=== PATIENT | female | born 1950 | race Hispanic/Latino ===

== ENCOUNTER 2016-12-04 07:50 | Outpatient (CLI) | payer MEDICARE, OTHER ==
--- NOTE | 2016-12-04 09:09 | Mammography Report ---
BILATERAL MAMMOGRAM with CAD: HISTORY: Cancer screening. Comparison study is dated November 29, 2015. FINDINGS: There are scattered fibroglandular densities (approximately 25%-50% glandular). No mass, distortion, suspicious calcification, or skin change is seen. IMPRESSION: Negative mammogram. There is no mammographic evidence of malignancy. RECOMMENDATION: Follow-up per ACS guidelines. BI-RADS CATEGORY: 1 = Negative ACR BI-RADS MAMMOGRAPHIC CODES: 0 = Needs additional imaging evaluation; 1 = Negative; 2 = Benign; 3 = Probably benign; 4 = Suspicious; 5 = Malignant; 6 = Known biopsy-proven malignancy COMMENT: 1. Dense breast tissue, i.e., adenosis, fibrocystic changes, etc., may obscure an underlying neoplasm. 2. Approximately 10% of cancers are not detected with mammography. 3. A negative mammography report should not delay biopsy if a clinically suspicious mass is present. COMMENT: Patient follow-up letters are generated in [employer].
== END 2016-12-04 07:51 | disposition home or self-care (01) ==
LOC: MAMMO 07:50
PROVIDERS: ATTEND Internal Medicine
DX: Z12.31 Encounter for screening mammogram for malignant neoplasm of breast (principal)
CPT/HCPCS: 77067; G0202

== ENCOUNTER 2020-09-24 09:07 | Outpatient (CLI) | payer MEDICARE ==
--- NOTE | 2020-09-25 08:47 | Mammography Report ---
DIGITAL SCREENING MAMMOGRAM, 09/24/2020 CLINICAL INFORMATION / INDICATION: Routine screening mammography. SCREENING MAMMO TECHNIQUE: Digital bilateral 2D mammography was obtained in the craniocaudal and mediolateral obliqu e projections. COMPARISON: Prior mammogram 07/06/2018 FINDINGS: Statements: Patient had recent right shoulder replacement making positioning of the right MLO difficu lt. Best possible images were obtained. Breast Density: The breasts are heterogeneously dense, which may obscure small masses. No dominant mass, suspicious calcifications, or architectural distortion in either breast. There has been no significant change compared with the prior examination. IMPRESSION: No mammographic evidence of malignancy. Follow up recommendation: Routine yearly BI-RADS Category 1: Negative. A "normal" or negative report should not discourage follow up or biopsy of a clinically significant f inding. A written summary of these findings will be mailed to the patient. The patient will be entered into a mammography reporting system which will generate a reminder letter for the patient's next appointmen t at the appropriate interval. The [employer] recommends yearly mammograms starting at age 40 and continuing as l darian as a woman is in good health. Breast MRI is recommended for women with an approximate 20-25% or greater lifetime risk of breast cancer, including women with a strong family history of breast or ova john cancer or who have been treated for Hodgkin's disease. Signer Name: Haleigh Fam MD Signed: 09/25/2020 8:42 AM Workstation Name: [employer]
== END 2020-09-24 09:08 | disposition home or self-care (01) ==
LOC: MAMMO 09:07
PROVIDERS: ATTEND Internal Medicine
DX: Z12.31 Encounter for screening mammogram for malignant neoplasm of breast (principal)
CPT/HCPCS: 77067

== ENCOUNTER 2021-12-13 02:23 | Emergency (ER) | payer MEDICARE ==
[2021-12-13 09:00] LABS: Hematocrit 30.9 % (30.3-42.9); Hemoglobin 10.3 gm/dl (10.1-14.3); Mean Corpuscular HGB Conc 33 % (30-34); Red Blood Count 2.69 M/mm3 (3.65-5.03); Red Cell Distribution Width 15.1 % (13.2-15.2)
[2021-12-13 09:14] LABS: Mean Corpuscular Volume 115 fl (79-97); Platelet Count 85 K/mm3 (140-440)
[2021-12-13 09:26] LABS: Alanine Aminotransferase 25 units/L (7-56); BUN/Creatinine Ratio 18; Blood Urea Nitrogen 7 mg/dL (7-17); Calcium 8.6 mg/dL (8.4-10.2); Hemolysis Index 0
[2021-12-13 09:39] LABS: Bacteria,Urine 1+ /HPF (Negative); Bilirubin,Urine MOD (Negative); Blood,Urine NEG (Negative); Color,Urine Amber (Yellow); Hyaline Casts,Urine 1 /LPF; Renal Epithelial Cells,Urine <1 /LPF
[2021-12-13 09:48] LABS: Ictotest,Urine Positive (Negative)
[2021-12-13] MEDS ORDERED: CYCLOBENZAPRINE 10 MG TAB PO ONE (09:56)
[2021-12-13] MEDS ORDERED: traMADol 50 MG TAB PO ONE (09:56)
[2021-12-13 10:35] LABS: Hepatitis B Surface Antigen Non-Reactive (Negative); Hepatitis C Virus Antibody Non-Reactive (NonReactive)
--- NOTE | 2021-12-13 13:08 | Emergency Department Report ---
ED Abdominal Pain HPI - General Chief Complaint: Abdominal Pain Stated Complaint: RT FLANK PAIN Time Seen by Provider: 12/13/21 09:29 Source: patient, EMS Mode of arrival: Stretcher Limitations: No Limitations - History of Present Illness Initial Comments: 71 yo white female with a pmh of HTN presents to ed for evaluation of pain to right flank and right lower back. She states that pain fells like an intermittent cramp that is severe when is happens, lasts just a few minutes then resolves. She states that pain occurs every few minutes. She denies abdominal pain, n/v, dysuria, and fever. She states that her a few months ago, and she has not been able to follow up with her pcp in several months. MD Complaint: flank pain -: Gradual, days(s) (6-7) Location: R flank Radiation: back (right lower only) Migration to: no migration Severity: severe Severity scale (0 -10): 10 Quality: cramping Consistency: intermittent Associated Symptoms: denies: nausea, vomiting, diarrhea, fever, chills, dysuria, hematemesis, hematochezia, melena, hematuria, anorexia, syncope - Related Data Previous Rx's Medication Instructions Recorded Last Taken Type Cyclobenzaprine HCl [Flexeril 5 MG 5 mg PO TID PRN #30 tab 12/13/21 Unknown Rx TAB] Naproxen [Naprosyn] 500 mg PO BID #14 tab 12/13/21 Unknown Rx cephALEXin [Keflex] 500 mg PO BID #14 cap 12/13/21 Unknown Rx Allergies Allergy/AdvReac Type Severity Reaction Status Date / Time Sulfa (Sulfonamide AdvReac Rash Verified 12/13/21 11:28 Antibiotics) ED Review of Systems ROS: Stated complaint: RT FLANK PAIN Other details as noted in HPI Comment: All other systems reviewed and negative Constitutional: denies: chills, fever Eyes: denies: vision change ENT: denies: congestion Respiratory: denies: shortness of breath Cardiovascular: denies: chest pain, palpitations, dyspnea on exertion, orthopnea, edema, syncope, paroxysmal nocturnal dyspnea Gastrointestinal: denies: abdominal pain, nausea, vomiting, diarrhea, hematemesis, melena, hematochezia Genitourinary: denies: urgency, dysuria, frequency, hematuria Musculoskeletal: back pain Skin: denies: rash Neurological: denies: headache, weakness, numbness ED Past Medical Hx - Social History Smoking Status: Never Smoker Substance Use Type: None - Medications Home Medications: Home Medications Medication Instructions Recorded Confirmed Last Taken Type Cyclobenzaprine HCl [Flexeril 5 MG 5 mg PO TID PRN #30 tab 12/13/21 Unknown Rx TAB] Naproxen [Naprosyn] 500 mg PO BID #14 tab 12/13/21 Unknown Rx cephALEXin [Keflex] 500 mg PO BID #14 cap 12/13/21 Unknown Rx ED Physical Exam - General Limitations: No Limitations General appearance: alert, in no apparent distress - Head Head exam: Present: atraumatic, normocephalic - Eye Eye exam: Present: PERRL, scleral icterus. Absent: periorbital swelling, periorbital tenderness - Neck Neck exam: Present: normal inspection, full ROM. Absent: tenderness, lymphaden opathy - Respiratory Respiratory exam: Present: normal lung sounds bilaterally. Absent: respiratory distress, wheezes, rales, rhonchi, stridor, chest wall tenderness - Cardiovascular Cardiovascular Exam: Present: regular rate, normal heart sounds - GI/Abdominal GI/Abdominal exam: Present: soft, normal bowel sounds. Absent: distended, tenderness, guarding, rebound, rigid - Extremities Exam Extremities exam: Present: normal inspection, normal capillary refill. Absent: tenderness, pedal edema, joint swelling, calf tenderness - Back Exam Back exam: Present: normal inspection, tenderness (right lower only). Absent: CVA tenderness (R), CVA tenderness (L), vertebral tenderness - Neurological Exam Neurological exam: Present: alert, oriented X3, normal gait - Psychiatric Psychiatric exam: Present: normal affect, normal mood - Skin Skin exam: Present: warm, dry, intact. Absent: normal color (jaundice) ED Course Vital Signs 12/13/21 12/13/21 12/13/21 02:24 11:33 13:50 Temperature 98 F 97.6 F 98.5 F Pulse Rate 93 H 69 77 Respiratory 18 20 20 Rate Blood Pressure 142/86 119/78 119/87 [Left] O2 Sat by Pulse 97 100 97 Oximetry - Reevaluation(s) Reevaluation #1: 12/13/21 13:04 Patient states that pain has mostly resolved and refuses CAT scan and states that she will not have any other testing at this time. Explained to patient importance no further imaging to determine cause of LFTs, but she refused. Patient will be discharged home with antibiotics to treat UTI and advised to follow-up with her primary care provider or GI. 12/14/21 22:03 ED Medical Decision Making - Lab Data Result diagrams: 12/13/21 08:37 12/13/21 08:37 - Medical Decision Making 71 yo white female with a pmh of HTN presents to ed for evaluation of pain to right flank and right lower back. She states that pain fells like an intermittent cramp that is severe when is happens, lasts just a few minutes then resolves. She states that pain occurs every few minutes. She denies abdominal pain, n/v, dysuria, and fever. She states that her a few months ago, and she has not been able to follow up with her pcp in several months. Patient refuses further testing, so she will be discharged with rx for Keflex to treat UTI and advised to follow up with GI for further evaluation and management of elevated LFT's. She was encouraged to get imaging but refused despite having the importance of it reviewed. She states that she will get a pcp and follow up later. Critical care attestation.: If time is entered above; I have spent that time in minutes in the direct care of this critically ill patient, excluding procedure time. ED Disposition Clinical Impression: Right flank pain, Elevated LFTs UTI (urinary tract infection) Qualifiers: Urinary tract infection type: acute cystitis Hematuria presence: without hematuria Qualified Code(s): N30.00 - Acute cystitis without hematuria Disposition: HOME / SELF CARE / HOMELESS Is pt being admited?: No Does the pt Need Aspirin: No Condition: Stable Instructions: Antibiotic Medicine, Adult, [id number], Liver Function Tests, Urinary Tract Infection, Adult, [id number], Flank Pain, Adult, [id number], Abdominal Pain (ED) Additional Instructions: Take medication as prescribed. Follow-up with primary care provider and or stomach doctor. Return to the emergency department as needed. Prescriptions: Cyclobenzaprine HCl [Flexeril 5 MG TAB] 5 mg PO TID PRN #30 tab PRN Reason: Muscle Spasm cephALEXin [Keflex] 500 mg PO BID #14 cap Naproxen [Naprosyn] 500 mg PO BID #14 tab Referrals: CARBUCCIA,DENNIS, MD [Staff Physician] - 3-5 Days CROW GUTIERREZ MD [Staff Physician] - 3-5 Days Time of Disposition: 13:10
[2021-12-13 13:52] VITALS: BP 119/87
== END 2021-12-13 13:51 | disposition home or self-care (01) ==
LOC: ED 02:23
DX: R10.9 Unspecified abdominal pain (principal); R74.01 Elevation of levels of liver transaminase levels; N39.0 Urinary tract infection, site not specified; Z88.2 Allergy status to sulfonamides
CPT/HCPCS: 36415; 80053; 80074; 81001; 85027; 87086; 99284